=== PATIENT | male | born 1960 | race Caucasian/White ===

== ENCOUNTER → 2018-05-28 | Outpatient (CLI) | payer OTHER ==
[~2018-05-28] MED LIST: AMLODIPINE PO; CYCLOBENZAPRINE10 MG PO; HYDROCODON-ACE1 EAC7 PO; HYDROCODON-ACE1 EAC8 PO; HYDROCODONE-AP1 EAC6 PO; IBUPROFEN 800800 M1 PO; KEFLEX500 MG PO; LISINOPRIL40 MG PO; MOBIC15 MG PO; NABUMETONE 500500 M2 PO; NORCO 5-325 TA1 EACH PO; NORVASC5 MG PO; RELAFEN500 MG PO; TRAMADOL 50 MG50 MG PO; TRAZODONE HCL50 MG PO; ULTRAM 50MG TAB50 MG PO; VOLTAREN GEL 1100 G1 TOP; VOLTAREN GEL 1100 G2 TOP; VOLTAREN100 GM TP
--- NOTE | ~2018-05-28 | PAINCON ---
[address] [address] PAIN MANAGEMENT CONSULTATION Name: DAIANA ROWLEY Room: [facility] Cyr#: [id number] Admission: 05/28/18 Attend Phys: Juliana Orantes MD Discharge: Date of : 60 Report #: [id number] THIS REPORT FOR: //name// CC: Uriel Orantes DATE OF SERVICE: 05/28/2018 CHIEF COMPLAINT: Low back pain. HISTORY OF PRESENT ILLNESS: The patient is a 57-year-old gentleman who has been followed in the Pain Clinic a number of years ago by Dr. Coto. This is my first visit with the patient. He has returned today for followup care. He has a history of chronic back pain. He has undergone physical therapy in the past. He has used Sulphur and found it beneficial. He rates his pain as a 6/10 at this point. He notes that the pain increases as the day goes on. 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 He has noted osteoarthritic changes secondary to his work. He has complaints of low back pain as well as bilateral shoulder pain. He notes his pain is exacerbated with activities such as walking, sitting, and standing for a prolonged period of time. Kneeling, bending, and twisting can be problematic as well. He has used medications, heat, rest, and stretching to help control the pain. ALLERGIES: No known drug allergies. MEDICATIONS: Current medications are amlodipine, hydrocodone, lisinopril, nabumetone, and trazodone. Medications which have been discontinued in the past are Voltaren, nabumetone 500 mg t.i.d., and trazodone 50 mg. PAST MEDICAL HISTORY: Hypertension, osteoarthritic changes to his shoulders and low back. PAST SURGICAL HISTORY: Appendectomy. SOCIAL HISTORY: He smokes cigarettes. Denies use of illicit drugs. PAIN CLINIC ASSESSMENT AND PQRS: 1. Osteoarthritic changes involving the shoulders and low back area. The patient complains of pain in his right hip. 2. Height 5 feet 10 inches, weight 237 pounds, BMI is 34.2. 3. Vital signs: Blood pressure 165/119, heart rate 99, respiratory rate 16, room air saturation 96%, temperature 98.2. 4. Pain intensity: 6/10. 5. Fall: The patient has not fallen in the last 3 months. 6. Blood thinner: The patient is not on a blood thinning medication. 7. Hypertension: The patient states that he gets [place] [address] PAIN MANAGEMENT CONSULTATION Name: DAIANA ROWLEY Room: [facility]#: [id number] Admission: 05/28/18 Attend Phys: Juliana Orantes MD Discharge: Date of : 60 Report #: [id number] blood pressure is elevated today at the beginning of the visit. He will follow up with his primary in that regard. 8. Opioids greater than 6 weeks: The patient has received opioid medications in the past. He finds that these medications are helpful. He states that he takes them as prescribed. 9. Risk assessment tool: Moderate for opioid use. 10. Functional assessment tool. 12. Recreational drug use: The patient denies use of recreational drugs. 13. Tobacco: The patient denies use of tobacco. 14. Alcohol: He does drink alcoholic beverages weekly. LABORATORY DATA: No laboratory values are available at the time of our interview. PHYSICAL EXAMINATION: GENERAL: The patient is a well-developed, well-nourished, white male. He appears his stated age. He is alert and oriented x 3. His affect is appropriate. Speech is fluent. HEENT: Normocephalic, atraumatic. Extraocular eye muscles are intact. Sclerae nonicteric. Mucous membranes are moist. NECK: Without adenopathy or JVD. The patient does have some pain complaints in the shoulder areas. HEART: Regular rate. ABDOMEN: Nontender. Bowel sounds present. LUNGS: Clear to auscultation. MUSCULOSKELETAL: Upper extremity muscle strength is judged to be 5/5 for the major muscle groups in the lower extremity. The patient has some complaint of pain in his right hip. He has pain and discomfort in the lower portion of his back as well as in his knees. Muscle strength of the lower extremity is judged to be 5-/5 for the major muscle groups in the lower extremity. IMPRESSION: 1. Chronic pain, low back area the most problematic, which has been problematic for greater than 10 years with some involvement of his shoulders. 2. Hypertension. 3. Osteoarthritic changes to his shoulders and low back. RECOMMENDATIONS: We discussed treatment options with the patient. Risks and benefits of opioid medications were reviewed. We explained problems with opioid medications. They can be beneficial initially. They may become less beneficial as time goes on secondary to development of tolerance. I explained to the patient he must take medications as prescribed, he states that he would. A script for his medications of hydrocodone 5 mg 1 p.o. q.i.d. have been written. He will follow up in the future as needed. The patient also has been given a script for ibuprofen 800 mg 1 p.o. q. 8 hours p.r.n. [address] [place] [address] PAIN MANAGEMENT CONSULTATION Name: DAIANA ROWLEY Room: [facility] Cyr#: [id number] Admission: 05/28/18 Attend Phys: Juliana Orantes MD Discharge: Date of : 60 Report #: [id number] We would like to thank you for letting us participate in his care. We hope he continues to improve. By: [id number]. Twin Orantes MD /nt
== END ==
LOC: M.PC 08:20
DX: M47.816 Spondylosis without myelopathy or radiculopathy, lumbar region (principal); M19.011 Primary osteoarthritis, right shoulder; M19.012 Primary osteoarthritis, left shoulder; I10 Essential (primary) hypertension; Z79.899 Other long term (current) drug therapy

== ENCOUNTER → 2018-07-23 | Outpatient (CLI) | payer OTHER ==
--- NOTE | 2018-08-06 01:32 | PAINCON ---
[address] [address] PAIN MANAGEMENT CONSULTATION Name: DAIANA ROWLEY ROBERT Room: [facility] M.R.#: [id number] Admission: 07/23/18 Attend Phys: Juliana Orantes MD Discharge: Date of : 60 Report #: [id number] THIS REPORT FOR: //name// CC: Manuel Pollard DATE OF SERVICE: 07/23/2018 PRIMARY CARE PHYSICIAN: Uriel Monique DO. CHIEF COMPLAINT: Low back pain. HISTORY: The patient is a 57-year-old gentleman who has been followed in the Pain Clinic. He has a history of chronic low back pain. He has undergone physical therapy in the past. 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 He does have some osteoarthritic changes. He has pain in his low back as well as in his shoulders. Notes that his blood pressure has been elevated. This was when we saw him in May. He will follow up with his primary in that regard. Notes his pain is about 50-60% improved with use of his medications. He has returned today for renewal of the medication. Notes pain is worse and can be more problematic when he is lying down and notes pain in his right hip. Notices worsening of pain when he is bending, kneeling, walking or standing for a prolonged period of time. ALLERGIES: No known drug allergies. CURRENT MEDICATIONS: Amlodipine, hydrocodone, lisinopril, nabumetone, trazodone. Medications used in the past have included Voltaren. PAIN CLINIC ASSESSMENT/PQRS: 1. The patient has osteoarthritic changes in his shoulders and low back area. He also complains of pain in his hip. He is not being treated for rheumatoid arthritis. 2. Height 5 feet 10 inches, weight 233 pounds, BMI is 33.5. 3. Vital Signs: Blood pressure 147/110, heart rate 116, respiratory rate 16, room air saturation 92%, temperature 98.3. 4. Pain intensity 08/17. 5. Fall history: The patient has not fallen in the last 3 months. 6. Blood thinner. The patient is not on a blood thinning medication. 7. Hypertension. The patient states that he notes elevated vitals secondary to white coat syndrome. 8. Opioids greater than 6 weeks. The patient has received opioid medications in the past. He is being prescribed medications to help with his pain control. 9. Risk assessment tool, moderate for opioid use. 10. [place] [address] PAIN MANAGEMENT CONSULTATION Name: DAIANA ROWLEY Room: [facility]#: [id number] Admission: 07/23/18 Attend Phys: Juliana Orantes MD Discharge: Date of : 60 Report #: [id number] 11. Recreational drug use. The patient denies use of recreational drugs. 12. Tobacco: The patient denies use of tobacco. 13. Alcohol. The patient drinks alcoholic beverages weekly. PHYSICAL EXAMINATION: GENERAL: The patient is a well-developed, well-nourished white male. Appears his stated age. He is alert and oriented x 3. His affect is appropriate. Speech is fluent. HEENT: Normocephalic, atraumatic. Extraocular eye muscles intact. Sclerae nonicteric. Mucous membranes moist. NECK: Without adenopathy or JVD. HEART: Regular rate. ABDOMEN: Nontender. Bowel sounds present. LUNGS: Clear to auscultation. MUSCULOSKELETAL: Without significant scoliosis, kyphosis or lordosis. The patient does have muscle strength judged to be 5/5 for the major muscle groups in his upper extremity. Does complain of pain and discomfort in the shoulders. Also complains of some right hip discomfort. IMPRESSION: 1. Chronic pain, low back area, most problematic involving his shoulders over the last 10 years. 2. Hypertension. 3. Right hip pain. 4. Osteoarthritis involving his shoulder and low back. RECOMMENDATIONS: We discussed treatment options with the patient. We will continue with Bozrah 5 mg 1 p.o. q.i.d. He will continue the medication as prescribed. He will call us if he has any concerns. We have discussed the use of opioid medications with the patient. He feels that this medication enables him to stay gainfully employed. Helps him to navigate and do his job better. He is having no problems with the medication. We have discussed the problems with opioid medications. They include possibility of dependency as well as development of less effectiveness secondary to tolerance. We have explained to the patient that 70,000 people last year as a result of opioid use. The patient will use the medication with caution as prescribed. We would like to thank you for letting us participate in his care. We hope he continues to improve. <ELECTRONICALLY SIGNED> By: Juliana Orantes MD 08/06/18 [id number]. Twin Orantes MD /JUAN ANTONIO
== END ==
LOC: M.PC 06-30 04:53
DX: M47.816 Spondylosis without myelopathy or radiculopathy, lumbar region (principal); M19.011 Primary osteoarthritis, right shoulder; M19.012 Primary osteoarthritis, left shoulder; G89.29 Other chronic pain; M25.551 Pain in right hip; I10 Essential (primary) hypertension

== ENCOUNTER → 2018-08-13 | Outpatient (CLI) | payer OTHER ==
--- NOTE | ~2018-08-13 | PAINCON ---
[facility] [address] [place] [address] PAIN MANAGEMENT CONSULTATION Name: DAIANA ROWLEY ROBERT Room: [facility].Fransico.#: [id number] Admission: 08/13/18 Attend Phys: Juliana Orantes MD Discharge: Date of : 60 Report #: [id number] THIS REPORT FOR: //name// CC: Manuel Orantes DATE OF SERVICE: 08/13/2018 CHIEF COMPLAINT: Low back pain. HISTORY OF PRESENT ILLNESS: The patient is a 57-year-old gentleman who has been seen in the Pain Clinic because of chronic back pain. He has undergone physical therapy because of the pain. 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 He notes that osteoarthritic changes are involving his knees as well as his shoulders. He has been helped by his current medical regimen. He is using hydrocodone 5/325 one p.o. q.i.d. This enables him to stay gainfully employed. He is not having any problems with cognition. He is able to perform all of his activities without any impairment. He would like to continue with the medications. He also has used meloxicam and finds that this medication is beneficial. He has returned today for renewal of his medications. He notes that the pain is really problematic with bending, kneeling, walking, and doing activities for a prolonged period of time. ALLERGIES: No known drug allergies. CURRENT MEDICATIONS: Amlodipine, hydrocodone, lisinopril, nabumetone, and trazodone. The patient has used Voltaren in the past. PAIN CLINIC ASSESSMENT AND PQRS: 1. The patient has some change in his shoulders and low back area. Also he has complaints of hip pain. He is not being treated for rheumatoid arthritis. 2. Height 5 feet 10 inches, weight 230 pounds, BMI is 33. 3. Vital signs: Blood pressure 154/109, heart rate 130, respiratory rate is 16, room air saturation is 92%. 4. Pain intensity: 7/10. 5. Fall history: The patient has not fallen in the last 3 months. 6. Blood thinner: The patient is not on a blood thinning medication. 7. Hypertension: The patient is being treated for hypertension. 8. Opioids greater than 6 weeks: The patient is receiving opioid medication through the Pain Clinic. 9. Risk assessment tool: Moderate for opioid use. 10. Functional assessment tool: Stable. 11. Recreational drug use: The patient denies use of recreational drugs. 12. Tobacco: The patient denies use of tobacco. 13. Alcohol: The [place] [address] PAIN MANAGEMENT CONSULTATION Name: RADHAKYLEEDAIANA JONES Room: [facility]#: [id number] Admission: 08/13/18 Attend Phys: Juliana Orantes MD Discharge: Date of : 60 Report #: [id number] PHYSICAL EXAMINATION: GENERAL: The patient is a well-developed, well-nourished, white male. He appears his stated age. He is alert and oriented x 3. His affect is appropriate. Speech is fluent. HEENT: Normocephalic, atraumatic. Extraocular eye muscles intact. Sclerae nonicteric. Mucous membranes are moist. NECK: Without adenopathy or JVD. LUNGS: Clear to auscultation. MUSCULOSKELETAL: The patient is without significant kyphosis, scoliosis or lordosis. His muscle strength is judged to be 5/5 for the major muscle groups in the upper extremity as well as some pain and discomfort in the low back area. IMPRESSION: 1. Chronic pain. The low back area is most problematic, involving his shoulders over the last 10 years. 2. Hypertension. 3. Right hip pain. 4. Osteoarthritis involving his shoulders and low back. RECOMMENDATIONS: We discussed treatment options with the patient. At this juncture, we will continue with his medications. We explained to the patient that opioid medications can be helpful. There is a limit to how much opioid medications one is able to receive via the [facility] direction. At this juncture, we will continue with a nonsteroidal anti-inflammatory medication, meloxicam. He will call us if he has any problems with that medication. Hopefully, this in conjunction with the hydrocodone, which is a narcotic medication, would be beneficial and enable him to continue to stay gainfully employed with the least amount of discomfort. He is not having any problems with the medication. He is sleeping and thinking clearly. 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 We will renew his medications of hydrocodone. A script for hydrocodone 5 mg 1 p.o. t.i.d., 120 tablets per month, has been written. The patient will also continue with meloxicam 15 mg 1 p.o. daily. He will call us if he has any concerns. We would like to thank you for letting us participate in his care. We hope he continues to improve. By: [id number]. Twin Orantes MD /tyron
== END ==
LOC: M.PC 05:35
DX: M47.816 Spondylosis without myelopathy or radiculopathy, lumbar region (principal); G89.29 Other chronic pain; I10 Essential (primary) hypertension; M25.551 Pain in right hip; M19.012 Primary osteoarthritis, left shoulder; M19.011 Primary osteoarthritis, right shoulder; Z79.899 Other long term (current) drug therapy

== ENCOUNTER → 2018-09-17 | Outpatient (CLI) | payer OTHER ==
--- NOTE | ~2018-09-17 | PAINCON ---
[address] [address] PAIN MANAGEMENT CONSULTATION Name: DAIANA ROWLEY Room: [facility] M.R.#: [id number] Admission: 09/17/18 Attend Phys: Juliana Orantes MD Discharge: Date of : 60 Report #: [id number] THIS REPORT FOR: //name// CC: Manuel Orantes DATE OF SERVICE: 09/17/2018 CHIEF COMPLAINT: Here for medication renewal. HISTORY: The patient is a 57-year-old gentleman who has been followed in the pain clinic because of chronic pain. 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 He has found that his pain, which involves his back, hip, and knees can be quite problematic. It has helped with his current medical regimen of hydrocodone 5/325 one p.o. q.i.d. He has returned today for renewal of his medication. He is not having any problems with the meloxicam. He would like to continue with the medication. Right side is more problematic than the left. As you recall, he has had back pain for a number of years. ALLERGIES: No known drug allergies. CURRENT MEDICATIONS: Amlodipine, hydrocodone, lisinopril, nabumetone, and trazodone. The patient has used Voltaren in the past. PAIN CLINIC ASSESSMENT AND PQRS: 1. The patient has some changes in his shoulder and in his lower back. Also, complains of hip pain. He is not being treated for rheumatoid arthritis. 2. Height 5 feet 11 inches, weight 226 pounds, BMI is 31. 3. VITAL SIGNS: Blood pressure 156/87, heart rate 96, respiratory rate 16, room air saturation is 93%, temperature 98.6. 4. Pain intensity 6/7. 5. Fall history: The patient has not fallen in the last 3 months. 6. Blood thinner. The patient is not using a blood thinning medication. 7. Hypertension. The patient is being treated for hypertension. 8. Opioids greater than 6 weeks. The patient receives his medication from one source, the pain clinic. 9. Risk assessment tool, moderate for opioid use. 10. Functional assessment tool, stable. 11. Recreational drug use. The patient denies use of recreational drugs. 12. Tobacco: The patient denies use of tobacco. 13. Alcohol: The patient drinks alcoholic beverages on a weekly basis. PHYSICAL EXAMINATION: GENERAL: The patient is a well-developed, well-nourished white male. Appears his stated age. He is alert and oriented x 3. [place] [address] PAIN MANAGEMENT CONSULTATION Name: DAIANA ROWLEY [id number] Admission: 09/17/18 Attend Phys: Juliana Orantes MD Discharge: Date of : 60 Report #: [id number] Speech is fluent. HEENT: Normocephalic, atraumatic. Extraocular eye muscles intact. Sclerae nonicteric. Mucous membranes are moist. NECK: Without adenopathy or JVD. HEART: Regular rate. LUNGS: Clear to auscultation. MUSCULOSKELETAL: Without significant scoliosis, kyphosis, or lordosis. Muscle strength in this is judged to be 5/5 for the major muscle groups in the upper extremity and 5/5 for the major groups in the lower extremity. The patient complains of pain in the low back area. IMPRESSION: 1. Chronic pain, low back area for a number of years. 2. Pain involving the shoulders and hips. 3. Hypertension. 4. Right hip pain. 5. Osteoarthritis involving shoulders and low back. RECOMMENDATIONS: We discussed treatment options with the patient. At this juncture, we will continue with his medications. He feels that the hydrocodone medication is helpful. We will continue with the complex medical management of his pain using opioids. The patient will also continue with Meloxicam 15 mg daily. He will call us if he has any concerns with his GI tract. He will stop taking the medication if developed some GI complaints. Overall, he feels his medication is helpful. He is about 50% improved with its use. We will continue with the medication. We would like to thank you for letting us participate in his care. We hope he continues to improve. By: [id number]. Twin Orantes MD /tyron
== END ==
LOC: M.PC 05:14
DX: M47.816 Spondylosis without myelopathy or radiculopathy, lumbar region (principal); M19.012 Primary osteoarthritis, left shoulder; M19.011 Primary osteoarthritis, right shoulder; I10 Essential (primary) hypertension

== ENCOUNTER → 2018-10-15 | Outpatient (CLI) | payer OTHER ==
[~2018-10-15] MED LIST changes: +MEDROLDOSEPACK PO
--- NOTE | ~2018-10-15 | PAINCON ---
[address] [address] PAIN MANAGEMENT CONSULTATION Name: DAIANA ROWLEY ROBERT Room: [facility] Alycia.#: [id number] Admission: 10/15/18 Attend Phys: Juliana Orantes MD Discharge: Date of : 60 Report #: [id number] THIS REPORT FOR: //name// CC: Manuel Orantes DATE OF SERVICE: 10/15/2018 CHIEF COMPLAINT: Here for medication renewal. HISTORY: The patient is a 58-year-old gentleman who has been followed in the pain clinic because of chronic pain involving his back, hip and knees. He has found that use of hydrocodone and meloxicam have been quite beneficial. He does feel that there is quite a bit of stress at home at this point. He has been having problems with sleep at night. He does feel somewhat anxious. He states that he does have white coat syndrome. Notes elevated blood pressures when he goes to the physician to see his physician. He returns today for renewal of his medication. He feels that the medications are helpful. He does not have any problems with them. Not have any problems with his GI tract. Does have pain, particularly in the right hip. He was unable to sleep on his hip last evening. Feels that this hip pain has been worsening over the last 1.5-2 weeks. ALLERGIES: No known drug allergies. CURRENT MEDICATIONS: Amlodipine, hydrocodone, lisinopril, nabumetone, trazodone. The patient has used Voltaren in the past. PAIN CLINIC ASSESSMENT AND PQRS: 1. The patient has some changes in his shoulders as well as his lower back. Also, complains of pain in his right hip, particularly more problematic today. He is not being treated for rheumatoid arthritis. 2. Height 5 feet 10 inches, weight 222 pounds, BMI is 32. 3. Vital Signs: Blood pressure 189/128, second blood pressure 195/131, heart rate 137, respiratory rate 18, room air saturation is 91%, temperature 98.4. 4. Pain intensity is 8/10. 5. Fall history: The patient has not fallen in the last 3 months. 6. Blood thinner. The patient is not on a blood thinning medication. 7. Hypertension. The patient is being treated for hypertension. 8. Opioids greater than 6 weeks. The patient [facility] pain clinic. 9. Risk assessment tool, moderate for opioid use. 10. Functional assessment tool, stable. 11. Recreational drug use. The patient denies. 12. Tobacco: The patient denies use of tobacco. 13. Alcohol: The patient drinks alcoholic beverages [place] [address] PAIN MANAGEMENT CONSULTATION Name: DAIANA ROWLEY [id number] Admission: 10/15/18 Attend Phys: Juliana Orantes MD Discharge: Date of : 60 Report #: [id number] PHYSICAL EXAMINATION: GENERAL: The patient is a well-developed, well-nourished white male. Appears his stated age. He is alert and oriented x 3. His affect is appropriate. Speech is fluent. HEENT: Normocephalic, atraumatic. Extraocular eye muscles intact. Sclerae nonicteric. Mucous membranes are moist. SKIN: The patient is somewhat of a tanned jose complexion, works outside. NECK: Without adenopathy or JVD. HEART: Tachycardic. LUNGS: Generally clear to auscultation. MUSCULOSKELETAL: Without significant scoliosis, kyphosis or lordosis. The patient has pain in the right hip area. Has pain in the upper extremities and muscle strength in the upper extremity judged to be 5/5 for the major muscle groups in the upper extremity. Pain in the lower back and muscle strength 5-/5 for the major muscle groups in the lower extremity. IMPRESSION: 1. Critically elevated blood pressure. 2. Chronic pain, low back area for a number of years. 3. Pain involving his right shoulder and particularly right hip today. 4. Hypertension. 5. Osteoarthritis involving his shoulders and low back. RECOMMENDATIONS: We discussed treatment options with the patient. We explained to the patient that this blood pressure is elevated. The diastolic pressure is higher than any I have seen in recent history. We explained to the patient the severity of this elevation and the need to bring this pressure within normal limits as soon as possible. We have expressed to the patient his need to go to the Emergency Room to be seen or at least go to his primary care today. The patient declines. I explained to the patient the hemodynamics and possible untoward complications of elevated high blood pressures. The patient still declines to go to the Emergency Room, but states that he will take his blood pressure when he is at home. I explained to the patient at least he needs to take his blood pressure on a regular basis, so he can take it to his doctor and be evaluated for the best medications for his particular case. He is having pain and discomfort in the right hip. We will give him a Medrol Dosepak to take in the future for his right hip discomfort. Again, we stressed in the strongest way his need to seek medical attention immediately. Continues to have pain and discomfort with walking, standing, bending and lifting. A script for his medications of meloxicam 15 mg 1 p.o. daily has been written. The patient will also continue with hydrocodone 5 mg 1 p.o. q.i.d. The patient has not had any GI concerns regarding the use of the meloxicam. [place] [address] PAIN MANAGEMENT CONSULTATION Name: DAIANA ROWLEY [facility] [id number] Admission: 10/15/18 Attend Phys: Juliana Orantes MD Discharge: Date of : 60 Report #: [id number] letting us participate in his care. He does get about 50% improvement with pain medications at this juncture. By: [id number]. Twin Orantes MD /JUAN ANTONIO
== END ==
LOC: M.PC 05:15
DX: M47.816 Spondylosis without myelopathy or radiculopathy, lumbar region (principal); I10 Essential (primary) hypertension; G89.29 Other chronic pain; M25.559 Pain in unspecified hip; M19.012 Primary osteoarthritis, left shoulder; M19.011 Primary osteoarthritis, right shoulder; Z79.899 Other long term (current) drug therapy

== ENCOUNTER → 2018-11-12 | Outpatient (CLI) | payer OTHER ==
--- NOTE | 2018-11-16 11:25 | PAINCON ---
[address] [address] PAIN MANAGEMENT CONSULTATION Name: DAIANA ROWLEY Room: [facility] Tong.#: [id number] Admission: 11/12/18 Attend Phys: Juliana Orantes MD Discharge: Date of : 60 Report #: [id number] THIS REPORT FOR: //name// CC: Manuel Orantes DATE OF SERVICE: 11/12/2018 CHIEF COMPLAINT: "The medicine pain medicine is helpful. Still have a right hip and low back pain. HISTORY: The patient is a 58-year-old gentleman who has been followed in the pain clinic because of chronic pain. Has pain and discomfort in lower portion of his back. Also, has pain in his knees and hips. Does have some pain in the right hip. At this juncture, he has not sought an x-ray. Economic reasons dictate him not getting the x-ray. Overall, he feels that his medications are helpful. Does find that the meloxicam and hydrocodone are beneficial. He notes that he has pain that shoots down his right leg at times. He works and has a quite physical job. Rates his pain as a 6/10. Notes his pain is about 50% improved with use of his medications. Notes that cold temperatures, walking, standing, bending and lifting can exacerbate his pain. Pain improves with use of heat and rest as well as with stretching. He has not had any problems with his GI tract with use of the nonsteroidal anti-inflammatory medications, Meloxicam. ALLERGIES: No known drug allergies. CURRENT MEDICATIONS: Amlodipine, hydrocodone 5/325 one p.o. q.i.d., lisinopril, nabumetone, and trazodone. PAIN CLINIC AND PQRS: 1. The patient has some changes in his shoulders as well as in the lower back. Also, complains of pain in his right hip, which radiates down into the right leg. He is not being treated for rheumatoid arthritis. 2. Height 5 feet 10 inches and weight 229 pounds, BMI is 32.8. Blood pressure 147/104, heart rate 103, respiratory rate 16, room air saturation is 94%, temperature 98.5. 3. Pain intensity 08/17 4. Fall history: The patient has not fallen in the last 3 months. 5. Blood thinner. The patient is not on a blood thinning medication. 6. Hypertension. The patient is being treated for hypertension. 7. Opioids greater than 6 weeks. The [facility]. 8. Risk assessment tool, moderate for opioid use. 9. Functional assessment tool. 10. Recreational drug [place] [address] PAIN MANAGEMENT CONSULTATION Name: DAIANA ROWLEY [id number] Admission: 11/12/18 Attend Phys: Juliana Orantes MD Discharge: Date of : 60 Report #: [id number] 11. Tobacco: The patient denies use of tobacco. 12. Alcohol: The patient drinks alcoholic beverages on a weekly basis. PHYSICAL EXAMINATION: GENERAL: The patient is a well-developed, well-nourished white male. Appears his stated age. He is alert and oriented x 3. His affect is appropriate. Speech is fluent. HEENT: Normocephalic, atraumatic. Extraocular eye muscles intact. Sclerae nonicteric. Mucous membranes are moist. NECK: Without adenopathy or JVD. The patient has tachycardia 103. LUNGS: Clear to auscultation. MUSCULOSKELETAL: Without significant scoliosis, kyphosis or lordosis. The patient has pain in the right hip area pain that radiates down into his lower leg on the lateral surface. Upper muscle strength judged to be 5/5 for the major muscle groups in the upper extremity. The patient has strength 5-/5 for the major muscle groups in the lower extremity. IMPRESSION: 1. Elevated blood pressure. The patient's blood pressure still remains elevated, but not as high as the last time. 2. Chronic pain. The patient has pain in the low back for a number of years. 3. Pain involving the right shoulder. 4. Pain in the right hip. 5. Hypertension. 6. Osteoarthritis involving his shoulder and low back area. RECOMMENDATIONS: We discussed treatment options with the patient. At this juncture, we will continue with his medications. We have reviewed reminded him that his blood pressure was elevated, he should continue to follow up with his primary physician. He will continue with Meloxicam. A script for this medication has been written. He will also continue with hydrocodone 5/325 one p.o. q.i.d. The patient will consider a hip x-ray in the future should his pain continue to be problematic. We have given him a Medrol Dosepak to take in the interim should his pain level exceed his pain threshold. He will call us if he has any concerns. We would like to thank you for letting us participate in his care. We hope he continues to improve. The patient is aware that opioid medications can be helpful, but can cause dependency in certain patients. He is not showing signs of addiction. He is aware that pain medications may become less effective over time secondary to development of tolerance. [address] [id number] PAIN MANAGEMENT CONSULTATION Name: RADHADAIANA PICHARDO Room: [facility] Cyr#: [id number] Admission: 11/12/18 Attend Phys: Juliana Orantes MD Discharge: Date of : 60 Report #: [id number] We would like to thank you for letting us participate in his care. We hope he continues to improve. <ELECTRONICALLY SIGNED> By: Juliana Orantes MD 11/16/18 1125 [id number]. Twin Orantes MD /nt
== END ==
LOC: M.PC 05:13
DX: M25.551 Pain in right hip (principal); G89.29 Other chronic pain; I10 Essential (primary) hypertension; M19.011 Primary osteoarthritis, right shoulder; Z79.899 Other long term (current) drug therapy

== ENCOUNTER 2019-04-09 23:41 | Emergency (ER) | payer OTHER ==
[~2019-04-09] VITALS: Ht 177.8 cm; Wt 120.2 kg
== END 2019-04-09 23:59 ==
LOC: M.ERS 23:41
DX: I46.9 Cardiac arrest, cause unspecified (principal); I10 Essential (primary) hypertension; Z90.49 Acquired absence of other specified parts of digestive tract